=== PATIENT | female | born 1960 | race Caucasian/White ===

== ENCOUNTER → 2016-07-22 | Outpatient (CLI) | payer OTHER ==
--- NOTE | 2016-07-22 16:40 | MA ---
Screening Digital Mammogram With iCAD Analysis Clinical Indications: Routine screening. A maternal was diagnosed with breast cancer in her 60s. The patient has had a benign biopsies bilaterally. Technique: Standard cephalocaudal projections are obtained. Digital breast tomosynthesis was performe d in the MLO projection with reconstruction at 1.0 mm slice thickness and composite MLO views reconst ructed. This examination is processed by the iCAD computer aided detection system. Comparison: July 2015, January 2015, July 2014, August 2013, August 2012, August 2011, 2010, August 2009. Breast density: Type C: Heterogeneously dense. Findings: CAD was reviewed. No masses, suspicious calcifications or secondary signs of malignancy are seen. There has been no significant change in the appearance of either breast. Impression: Negative mammogram. BI-RADS 1. Recommendation: Routine mammographic screening in one year as long as physical examination is negativ e in this patient with heterogeneously dense breast parenchyma. [facility] will send a result letter to the patient. Negative mammography should not preclude additional workup of a clinically suspicious finding. The patient's information is entered into a reminder system with a target due date for her next mammo gram.
== END ==
LOC: FIMAGING 14:31
PROVIDERS: ATTEND Internal Medicine
DX: Z12.31 Encounter for screening mammogram for malignant neoplasm of breast (principal); Z80.3 Family history of malignant neoplasm of breast
CPT/HCPCS: G0202

== ENCOUNTER 2017-04-30 16:57 | Emergency (ER) | payer OTHER ==
[2017-04-30] MEDS ORDERED: MECLIZINE HCL 25 MG TAB PO ONE (17:11)
--- NOTE | 2017-04-30 17:11 | EDPHY ---
HPI/HX/ROS/PE/MDM Narrative: CHIEF COMPLAINT: Near syncope, vertigo HISTORY OF PRESENT ILLNESS: The patient is a 56 y/o female arriving via EMS after a near syncopal episode. She reports that for the past few days she has been experiencing pressure in her ears and congestion symptoms. This morning she took a Claritin and did a sinus rinse before going to work. While at work, she suddenly began feeling dizzy which she describes as vertiginous symptoms. "feeling like she is on a boat". Patient stood up and had a near syncopal episode. She reports prior symptoms of vertigo the past. Her coworkers called 911. Patient herself reports feeling relatively well. She denies any chest pain or shortness of breath. She denies any palpitations. No headache, no numbness, tingling, or shortness of breath. No fever, or purulent nasal discharge. REVIEW OF SYSTEMS: Aside from elements discussed in the HPI, a comprehensive 10-point review of systems was reviewed and is negative. PAST MEDICAL HISTORY: Neck surgery, melanoma. No cardiac history SOCIAL HISTORY: Works at the [employer], lives in [place], . VITAL SIGNS: Reviewed by me GENERAL: Well-developed, well-nourished, resting comfortably in no respiratory distress. HEENT: Atraumatic. Eyes: No icterus, no injection. No nystagmus. Pupils equal round reactive to light. No sinus tenderness to percussion. TMs: Cerumen blocking the left TM. Right TM is clear. Mouth: moist mucous membranes. No erythema or lesions. Neck: supple with no adenopathy. LUNGS: Clear to auscultation bilaterally, no wheezes, rhonchi or rales. CARDIAC: Regular rate and rhythm, no rubs, murmurs or gallops. ABDOMEN: Soft, nontender, nondistended, bowel sounds normal. BACK: No CVA tenderness. EXTREMITIES: No trauma. No edema. Range of motion is normal throughout. NEURO: Alert and oriented, cranial nerves 2-12 are intact. Motor strength 5/5 throughout. Sensation intact to light touch. Very slightly off balance when she stands, reports feeling spinning. SKIN: Warm and dry, no rash. PSYCHIATRIC: Normal mentation, no agitation. Portions of this note were transcribed by a medical csr. I personally performed a history, physical exam, medical decision making, and confirmed accuracy of information the transcribed note. ED Course: The patient is a 56 y/o female arriving via EMS for a near syncopal episode. She has been experiencing congestion for a few days and today while at work, she began experiencing vertigo. When EMS tried to have her walk she had a near syncopal episode. She denies any other symptoms. Patient declined an EKG. She was sinus rhythm on the monitor. She received meclizine 25 mg by mouth. Patient declined further evaluations. She feels this is most likely vertigo related to her congestion and upper respiratory infection. Following the meclizine she is feeling significantly improved. She is able to ambulate without difficulty. She reports no further dizziness. She would like to be discharged. She will follow up with primary care physician. She was given instructions regarding Flonase nasal spray as well as in meclizine. MDM: Differential diagnosis of the patient's dizziness was considered including but not limited to peripheral and central causes of vertigo, cardiac arrhythmias, cardiac ischemia, electrolyte disturbances, neurologic causes, orthostatic causes including dehydration, and blood loss. - Data Points Medications Given: Discontinued Medications Meclizine HCl (Meclizine Hcl) 25 mg PO EDNOW ONE Stop: 04/30/17 17:12 Last Admin: 04/30/17 17:23 Dose: 12.5 mg General Time Seen by Provider: 04/30/17 16:57 Initial Vital Signs: Initial Vital Signs Temperature (C) 36.8 C 04/30/17 17:01 Heart Rate 80 04/30/17 17:01 Respiratory Rate 16 04/30/17 17:01 Blood Pressure 129/81 H 04/30/17 17:01 O2 Sat (%) 100 04/30/17 17:01 O2 Delivery Mode Room Air Allergies/Adverse Reactions: codeine [Codeine] Allergy (Unknown, Verified 11/09/14 20:47) Macrolide Antibiotics Allergy (Unknown, Verified 11/09/14 20:47) Home Medications: Medication Instructions Recorded Estradiol [Estrogel] 10/06/11 Cortisone 04/30/17 Meclizine HCl [Meclizine HCl 25 mg 25 mg PO BID #20 tab 04/30/17 (RX,OTC)] Progesterone 04/30/17 Departure - Departure Disposition: Home, Routine, Self-Care Clinical Impression: Vertigo Upper respiratory infection Qualifiers: URI type: unspecified URI Qualified Code(s): J06.9 - Acute upper respiratory infection, unspecified Condition: Good Instructions: Vertigo (ED), Near Syncope (ED) Additional Instructions: I recommend meclizine 12.5-25 mg every 8-12 hours for your dizziness. Please drink plenty of fluids and get plenty of rest. For your congestion, please use a decongestant. These are available many over- the-counter medications. I also recommend Flonase nasal spray. If you are congested, take a decongestant. Afrin nasal spray will help a few have significant sinus congestion. Do not use this for more than 3 days in a row. Flonase nasal spray is also helpful for nasal congestion. If you have a sore throat, take Tylenol, or ibuprofen. Throat lozenges, throat sprays, or salt water gargles may also be helpful. Consider using Debrox next week to help control earwax Referrals: Robyn Lovett MD [Primary Care Provider] - As per Instructions Prescriptions: Meclizine HCl [Meclizine HCl 25 mg (RX,OTC)] 25 mg PO BID #20 tab Report Scribed for: Flavia Medina Report Scribed by: Lissette Vargas Date of Report: 04/30/17 Time of Report: 18:28
[2017-04-30 18:22] VITALS: BP 109/65; PULSE 65; RESP 18; TEMP 98.4; O2SAT 95
== END 2017-04-30 18:20 | disposition home or self-care (01) ==
LOC: EDUNIT#
DX: R42 Dizziness and giddiness (principal); J06.9 Acute upper respiratory infection, unspecified

== ENCOUNTER → 2017-07-28 | Outpatient (CLI) | payer OTHER | LOC: FIMAGING 13:38 | PROVIDERS: ATTEND Surgery | DX: Z12.31 Encounter for screening mammogram for malignant neoplasm of breast (principal) ==

== ENCOUNTER 2017-09-13 22:50 | Emergency (ER) | payer OTHER ==
[2017-09-13 23:19] VITALS: RESP 16; TEMP 97.3
[2017-09-13] MEDS ORDERED: MAG HYDROX/AL HYDROX/SIMETH 30 ML UDCUP PO ONE (23:25)
[2017-09-13] MEDS ORDERED: LIDOCAINE 2% VISCOUS 15 ML UDCUP PO ONE (23:25)
[2017-09-13] MEDS ORDERED: PANTOPRAZOLE SODIUM 40 MG VIAL IVP ONE (23:26)
[2017-09-13 23:30] LABS: PLATELET COUNT 282 10^3/uL (150-400)
--- NOTE | 2017-09-13 23:31 | EDPHY ---
H & P Stated Complaint: pt c/o painful heartburn after taking celebrex and gabapentin Time Seen by Provider: 09/13/17 22:59 HPI/ROS: Chief Complaint: Heartburn HPI: 57-year-old woman with a history of chronic neck pain status post fusion and gastrointestinal reflux. Patient has been unable to take ibuprofen in the past. She was seen by her spinal doctor and told to take Celebrex which she started 2 days ago. Yesterday she is having worsening upper abdominal pain which is not going away with her usual antacid medications. No nausea or vomiting. No dark tarry stools. No shortness of breath. Pain is worse when she lays down, improved when she sits up. She also started taking gabapentin at the same time. No fevers or chills. No cough. ROS: 10 point Review of Systems is negative except as noted in the HPI. PMH: Chronic neck pain, gastrointestinal reflux disease Social History: No smoking, no alcohol, no recreational drug use Family History: non-contributory Physical Exam: Gen: Awake, Alert, No Distress HEENT: Nose: no rhinorrhea Eyes: PERRLA, EOMI Mouth: Moist mucosa Neck: Supple, no JVD Chest: nontender, lungs clear to auscultation Heart: S1, S2 normal, no murmur Abd: Soft, moderate epigastric tenderness reproducing her presenting complaint, no guarding Back: no CVA tenderness, no midline tenderness Ext: no edema, non-tender Skin: no rash Neuro: CN II-XII intact, Sensation grossly intact, Strength 5/5 in bilateral upper and lower extremities - Personal History Current Tetanus Diphtheria and Acellular Pertussis (TDAP): Yes Tetanus Vaccine Date: 2011 - Medical/Surgical History Hx Asthma: No Hx Chronic Respiratory Disease: No Hx Diabetes: No Hx Cardiac Disease: No Hx Renal Disease: No Hx Cirrhosis: No Hx Alcoholism: No Hx HIV/AIDS: No Hx Splenectomy or Spleen Trauma: No Other PMH: hysterectomy cervical spinal fusion tonsilectomy, melanoma and lichens, C7 stenosis - Social History Smoking Status: Never smoked Constitutional: Initial Vital Signs Temperature (C) 36.4 C 09/13/17 22:55 Heart Rate 70 09/13/17 22:55 Respiratory Rate 20 09/13/17 22:55 Blood Pressure 126/67 H 09/13/17 22:55 O2 Sat (%) 99 09/13/17 22:55 O2 Delivery Mode Room Air Allergies/Adverse Reactions: codeine [Codeine] Allergy (Unknown, Verified 11/09/14 20:47) Macrolide Antibiotics Allergy (Unknown, Verified 11/09/14 20:47) Home Medications: Medication Instructions Recorded Celebrex 09/13/17 DIVIGEL 09/13/17 Estrace 09/13/17 Gabapentin 09/13/17 Tums Ultra 09/13/17 Medical Decision Making - Diagnostics EKG Interpretation: ECG time 11:08 p.m., sinus rhythm with a rate of 67, normal axis, normal intervals, no acute ST or T-wave changes. Impression: Normal ECG. Imaging Results: Imaging Impressions Chest X-Ray 09/13/17 23:25 Impression: No acute abnormality, or substantial change from 07/20/2015. Imaging: I viewed and interpreted images myself ED Course/Re-evaluation: 57-year-old woman presenting with epigastric pain which is likely consistent with peptic ulcer disease. She has not had any melena to suggest active GI bleeding. Her abdomen is soft and benign no suggestion of perforation at this time. I do not think that this is cardiac in nature because she has been persistent for over 24 hr and she has a normal ECG and a normal troponin and a normal chest x-ray. She has had some relief here with antacid medications and pain medications. She has a history of GERD and intolerance to NSAIDs but unfortunate was recently started on a Peralta 2 inhibitor which I think is exacerbate her symptoms. She certainly needs follow up with Gastroenterology and likely needs an endoscopy. She is improved here. Will discharge with a GI referral. - Data Points Laboratory Results: Laboratory Results 09/13/17 23:00 09/13/17 23:00 09/13/17 09/13/17 23:00 23:00 WBC 7.02 10^3/uL 10^3/uL (3.80-9.50) RBC 4.16 10^6/uL L 10^6/uL (4.18-5.33) Hgb 13.8 g/dL g/dL (12.6-16.3) Hct 38.8 % % (38.0-47.0) MCV 93.3 fL fL (81.5-99.8) MCH 33.2 pg pg (27.9-34.1) MCHC 35.6 g/dL g/dL (32.4-36.7) RDW 12.4 % % (11.5-15.2) Plt Count 282 10^3/uL 10^3/uL (150-400) MPV 9.5 fL fL (8.7-11.7) Neut % (Auto) 42.2 % % (39.3-74.2) Lymph % (Auto) 45.6 % H % (15.0-45.0) [place] % (Auto) 10.5 % % (4.5-13.0) Eos % (Auto) 1.3 % % (0.6-7.6) Baso % (Auto) 0.3 % % (0.3-1.7) Nucleat RBC Rel Count 0.0 % % (0.0-0.2) Absolute Neuts (auto) 2.96 10^3/uL 10^3/uL (1.70-6.50) Absolute Lymphs (auto) 3.20 10^3/uL H 10^3/uL (1.00-3.00) Absolute Monos (auto) 0.74 10^3/uL 10^3/uL (0.30-0.80) Absolute Eos (auto) 0.09 10^3/uL 10^3/uL (0.03-0.40) Absolute Basos (auto) 0.02 10^3/uL 10^3/uL (0.02-0.10) Absolute Nucleated RBC 0.00 10^3/uL 10^3/uL (0-0.01) Immature Gran % 0.1 % % (0.0-1.1) Immature Gran # 0.01 10^3/uL 10^3/uL (0.00-0.10) Sodium 140 mEq/L mEq/L (135-145) Potassium 4.3 mEq/L mEq/L (3.5-5.2) Chloride 103 mEq/L mEq/L (97-110) Carbon Dioxide 26 mEq/l mEq/l (22-31) Anion Gap 11 mEq/L mEq/L (8-16) BUN 19 mg/dL mg/dL (7-23) Creatinine 0.8 mg/dL mg/dL (0.6-1.0) Estimated GFR > 60 Glucose 91 mg/dL mg/dL (70-100) Calcium 10.1 mg/dL mg/dL (8.5-10.4) Total Bilirubin 0.4 mg/dL mg/dL (0.1-1.4) AST 27 IU/L IU/L (14-46) ALT 37 IU/L IU/L (9-52) Alkaline Phosphatase 38 IU/L IU/L (38-126) Troponin I < 0.012 ng/mL ng/mL (0.000-0.034) Total Protein 7.3 g/dL g/dL (6.3-8.2) Albumin 4.5 g/dL g/dL (3.5-5.0) Lipase 112 IU/L IU/L (23-300) Medications Given: Discontinued Medications Al Hydroxide/Mg Hydroxide (Maalox Susp) 30 ml PO ONCE ONE Stop: 09/13/17 23:26 Last Admin: 09/13/17 23:44 Dose: 30 ml Fentanyl (Sublimaze) 50 mcg IVP EDNOW ONE Stop: 09/14/17 00:18 Last Admin: 09/14/17 00:44 Dose: Not Given Lidocaine (Lidocaine 2% Viscous) 15 ml PO ONCE ONE Stop: 09/13/17 23:26 Last Admin: 09/13/17 23:43 Dose: 15 ml Pantoprazole Sodium (Protonix) 80 mg IVP EDNOW ONE Stop: 09/13/17 23:27 Last Admin: 09/13/17 23:44 Dose: 80 mg Departure - Departure Disposition: Home, Routine, Self-Care Clinical Impression: Peptic disease Condition: Good Instructions: Peptic Ulcer (ED), Diet for Stomach Ulcers and Gastritis (ED) Additional Instructions: Continue taking your proton pump inhibitor for your symptoms. Follow up with Gastroenterology in 3-4 days for further evaluation. Please discontinue taking the Celebrex. Return to the emergency depart for worsening pain, dark black bowel movements, vomiting blood, lightheadedness, fainting, or any other concerns. Referrals: Robyn Lovett MD [Primary Care Provider] - As per Instructions Mimi Beltran MD [Medical Doctor] - As per Instructions
[2017-09-14] MEDS ORDERED: fentaNYL 100 MCG/2 ML INJ IVP ONE (00:17)
[2017-09-14 00:42] VITALS: BP 117/80; PULSE 75; O2SAT 98
[2017-09-14] MEDS ORDERED: FAMOTIDINE 20 MG/NACL 50 ML IV ONE (00:49)
--- NOTE | 2017-09-17 06:36 | CPEKG ---
Heart Rate: 67 RR Interval: 896 P-R Interval: 160 QRSD Interval: 68 QT Interval: 392 QTC Interval: 414 P [place]: 75 QRS [place]: 64 T Wave [place]: 54 EKG Severity - BORDERLINE ECG - EKG Impression: SINUS RHYTHM EKG Impression: PROBABLE LEFT ATRIAL ABNORMALITY Electronically Signed By: Guillaume Vivas 17-Sep-2017 08:53:03
== END 2017-09-14 01:21 | disposition home or self-care (01) ==
DX: K27.9 Peptic ulcer, site unspecified, unspecified as acute or chronic, without hemorrhage or perforation (principal)
CPT/HCPCS: 96374; J3010

== ENCOUNTER → 2018-03-06 | Outpatient (CLI) | payer OTHER | LOC: FIMAGING 07:48 | PROVIDERS: ATTEND Internal Medicine Gastroenterology | DX: K30 Functional dyspepsia (principal) ==

== ENCOUNTER → 2018-03-13 | Outpatient (CLI) | payer OTHER | LOC: FIMAGING 07:42 | PROVIDERS: ATTEND Internal Medicine Gastroenterology | DX: K30 Functional dyspepsia (principal); K21.9 Gastro-esophageal reflux disease without esophagitis ==

== ENCOUNTER → 2018-04-01 | Outpatient (CLI) | payer OTHER | LOC: FIMAGING 08:20 | PROVIDERS: ATTEND Internal Medicine Gastroenterology | DX: R10.13 Epigastric pain (principal); K21.9 Gastro-esophageal reflux disease without esophagitis ==

== ENCOUNTER → 2018-04-06 | Outpatient (CLI) | payer OTHER | LOC: FIMAGING 08:14 | PROVIDERS: ATTEND Internal Medicine Gastroenterology | DX: K21.9 Gastro-esophageal reflux disease without esophagitis (principal) | CPT/HCPCS: A9537 ==

== ENCOUNTER → 2018-07-29 | Outpatient (CLI) | payer OTHER | LOC: FIMAGING 16:01 | PROVIDERS: ATTEND Internal Medicine | DX: Z12.31 Encounter for screening mammogram for malignant neoplasm of breast (principal) ==